=== PATIENT | female | born 1970 | race Caucasian/White ===

== ENCOUNTER 2017-07-18 20:12 | Emergency (ER) | payer BC ==
[~2017-07-18] VITALS: Ht 157.5 cm; Wt 90.7 kg
[~2017-07-18 20:12] MED LIST: ALBU90OI INH; BENZ100A PO; CETI10; CYCL10 PO; DOXY100T53 PO; HYDACE5; HYDACE5 PO; HYDCHL12.5 PO; IBUP800; Norco 5-325 Ta1 EACH PO; OXYACE5T PO; SULTRIDS PO; TIZANIDINE PO; TUDORZA; VENL75ER PO
[2017-07-18] MEDS ORDERED: GLIM2 PO (20:45)
== END 2017-07-18 20:43 | disposition home or self-care (01) ==
LOC: ER 20:12
DX: J02.9 Acute pharyngitis, unspecified (principal); Z88.0 Allergy status to penicillin; Z88.8 Allergy status to other drugs, medicaments and biological substances; Z91.030 Bee allergy status; Z79.899 Other long term (current) drug therapy; E11.9 Type 2 diabetes mellitus without complications
CPT/HCPCS: 99282

== ENCOUNTER 2018-08-27 06:05 | Day surgery (SDC) | payer BC ==
[~2018-08-27] VITALS: Ht 157.5 cm; Wt 87.1 kg
[~2018-08-27 06:05] MED LIST changes: +Adipex-P37.5 MG PO; +Diclofenac Pota50 MG PO; +GLIM2 PO
[2018-08-27] MEDS ORDERED: Norco 10-325 T1 EACH PO (06:56)
[2018-08-27] MEDS ORDERED: NAPR220 PO (06:57)
[2018-08-27] MEDS ORDERED: EXEN5PENI SC (06:58)
--- NOTE | 2018-08-27 10:26 | NUR ---
08/27/18 1026 Sara Mckeon TEACHING FOR IS, SLING USE. HAND AND WRIST EXCERSISE, POLAR PACK, PAIN MEDS. FOLLOW UP. TO CAR IN WC WITH ENRIQUE TO DRIVE HOME
== END 2018-08-27 10:20 | disposition home or self-care (01) ==
LOC: ORSCSDS 06:05
PROVIDERS: Orthopaedic Surgery
PROC: 0RNK4ZZ Release Left Shoulder Joint, Percutaneous Endoscopic Approach (ICD-10-PCS; principal; 2018-08-27 07:30)
PROC: 0LS24ZZ Reposition Left Shoulder Tendon, Percutaneous Endoscopic Approach (ICD-10-PCS; principal; 2018-08-27 07:30)
PROC: 0LQ24ZZ Repair Left Shoulder Tendon, Percutaneous Endoscopic Approach (ICD-10-PCS; principal; 2018-08-27 07:30)
DX: M75.52 Bursitis of left shoulder (principal); M75.112 Incomplete rotator cuff tear or rupture of left shoulder, not specified as traumatic; M75.22 Bicipital tendinitis, left shoulder; G47.33 Obstructive sleep apnea (adult) (pediatric); E11.9 Type 2 diabetes mellitus without complications; F32.9 Major depressive disorder, single episode, unspecified; Z79.899 Other long term (current) drug therapy
CPT/HCPCS: 82947; C1713; J0171; J1100; J1885; J2250; J2405; J2710; J2765; J2795; J3010; J7120

== ENCOUNTER 2020-03-30 09:06 | Day surgery (SDC) | payer BC ==
[~2020-03-30] VITALS: Ht 157.5 cm; Wt 81.9 kg
[~2020-03-30 09:06] MED LIST changes: +ASCO500 PO; +EXEN5PENI SC; +Loratadine10 MG PO; +NAPR220 PO; +Norco 10-325 T1 EACH PO; +TURMERIC500 M2 PO
== END 2020-03-30 10:34 | disposition home or self-care (01) ==
LOC: ORSCSDS 09:06
PROVIDERS: Internal Medicine Gastroenterology
PROC: 0DJD8ZZ Inspection of Lower Intestinal Tract, Via Natural or Artificial Opening Endoscopic (ICD-10-PCS; principal; 2020-03-30 10:00)
DX: Z12.11 Encounter for screening for malignant neoplasm of colon (principal); F41.8 Other specified anxiety disorders; E11.9 Type 2 diabetes mellitus without complications; Z79.899 Other long term (current) drug therapy
CPT/HCPCS: 82947; J2704; J7120

== ENCOUNTER → 2021-08-30 | Outpatient (CLI) | payer BC | END | disposition home or self-care (01) | LOC: LAB 11:39 → LAB SHORT 11:39 | PROVIDERS: Internal Medicine Endocrinology, Diabetes & Metabolism | DX: G89.4 Chronic pain syndrome (principal) | CPT/HCPCS: G0480 ==

== ENCOUNTER → 2024-06-10 | Outpatient (CLI) | payer BC ==
[2024-06-10 15:46] LABS: Candida Group, PCR NOT DETECTED (NOT DETECT); Candida glabrata-krusei, PCR NOT DETECTED (NOT DETECT)
[2024-06-10 15:47] LABS: Bacterial Vaginosis PCR Positive (NEGATIVE)
== END ==
LOC: LAB 11:51 → LAB SHORT 11:51
PROVIDERS: Physician Assistant
DX: N89.8 Other specified noninflammatory disorders of vagina (principal)
CPT/HCPCS: 87481; 87661; 87801

== ENCOUNTER → 2025-05-20 | Outpatient (CLI) | payer BC | LOC: LAB 17:37 | DX: Z79.891 Long term (current) use of opiate analgesic (principal) ==